=== PATIENT | female | born 1950 | race Caucasian/White ===

== ENCOUNTER → 2017-04-27 | Outpatient (REF) | LOC: WSOH 10:30 | DX: Z02.4 Encounter for examination for driving license (principal) ==

== ENCOUNTER 2018-07-05 13:30 | Outpatient (RCR) | payer MEDICARE, BC | END 2018-08-13 | disposition home or self-care (01) | LOC: WSPT | DX: M48.07 Spinal stenosis, lumbosacral region (principal); G95.19 Other vascular myelopathies; R29.3 Abnormal posture; Z79.84 Long term (current) use of oral hypoglycemic drugs; Z79.899 Other long term (current) drug therapy | CPT/HCPCS: G8978-GP; G8979-GP ==

== ENCOUNTER → 2018-09-25 | Outpatient (REF) | LOC: ZLAB.WCH 16:06 | DX: Z01.89 Encounter for other specified special examinations (principal) ==

== ENCOUNTER → 2018-09-30 | Emergency (ER) | payer MEDICARE, BC ==
[~2018-09-30] VITALS: Ht 157.5 cm; Wt 89.1 kg
[~2018-09-30] MED LIST: BYSTOLIC10 MG PO; CALCIUM 600-D 61 TAB PO; FLEXERIL 1010 MG/TAB PO; FOSAMAX 70MG TA70 MG PO; IBU400 MG PO; JANUMXR100-1000 PO; LIPITOR20 MG PO; MEGA MULTIVITAM1 TAB PO; NAPROSYN500 MG PO; NATURE'S BLEND500 M1 PO; NORVASC 10MG10 MG PO; VICTOZA6 MG/ML SQ; VITAMIN C500 MG PO; ZESTRIL 5MG5 MG PO
[2018-09-30 13:48] VITALS: BP 133/78; PULSE 83
== END ==
LOC: COL.ER 10:24
DX: M54.42 Lumbago with sciatica, left side (principal); M51.36 Other intervertebral disc degeneration, lumbar region; I10 Essential (primary) hypertension; E11.9 Type 2 diabetes mellitus without complications; M19.90 Unspecified osteoarthritis, unspecified site; Z79.84 Long term (current) use of oral hypoglycemic drugs
CPT/HCPCS: J1170

== ENCOUNTER 2018-10-09 12:45 | Outpatient (RCR) | payer MEDICARE, BC | END 2018-11-26 | disposition home or self-care (01) | LOC: WSC | DX: M48.02 Spinal stenosis, cervical region (principal) | CPT/HCPCS: G8984-GP; G8985-GP ==

== ENCOUNTER → 2018-11-20 | Outpatient (CLI) | payer MEDICARE, BC | LOC: MHCPAIN 14:55 | DX: G89.29 Other chronic pain (principal); M47.817 Spondylosis without myelopathy or radiculopathy, lumbosacral region; M54.16 Radiculopathy, lumbar region; M53.3 Sacrococcygeal disorders, not elsewhere classified; M96.1 Postlaminectomy syndrome, not elsewhere classified | CPT/HCPCS: G0463 ==

== ENCOUNTER → 2018-12-03 | Outpatient (CLI) | payer MEDICARE, BC | LOC: MHCPAIN 12:08 | DX: M47.817 Spondylosis without myelopathy or radiculopathy, lumbosacral region (principal); M54.16 Radiculopathy, lumbar region | CPT/HCPCS: J1100; Q9967 ==

== ENCOUNTER → 2018-12-18 | Outpatient (CLI) | payer MEDICARE, BC | LOC: MHCPAIN 09:12 | DX: G89.29 Other chronic pain (principal); M47.817 Spondylosis without myelopathy or radiculopathy, lumbosacral region; M54.16 Radiculopathy, lumbar region; M53.3 Sacrococcygeal disorders, not elsewhere classified; M96.1 Postlaminectomy syndrome, not elsewhere classified | CPT/HCPCS: G0463 ==

== ENCOUNTER → 2018-12-27 | Outpatient (CLI) | payer MEDICARE, BC | LOC: MHCPAIN 12:59 | DX: M47.817 Spondylosis without myelopathy or radiculopathy, lumbosacral region (principal); M54.16 Radiculopathy, lumbar region | CPT/HCPCS: J1100; Q9967 ==

== ENCOUNTER → 2019-02-06 | Outpatient (CLI) | payer MEDICARE, BC | LOC: MHCPAIN 13:20 | DX: G89.29 Other chronic pain (principal); M47.817 Spondylosis without myelopathy or radiculopathy, lumbosacral region; M54.16 Radiculopathy, lumbar region; M53.3 Sacrococcygeal disorders, not elsewhere classified; M48.061 Spinal stenosis, lumbar region without neurogenic claudication | CPT/HCPCS: G0463 ==

== ENCOUNTER → 2019-02-11 | Outpatient (CLI) | payer MEDICARE, BC | LOC: MHCPAIN 10:51 | DX: M47.817 Spondylosis without myelopathy or radiculopathy, lumbosacral region (principal); M54.16 Radiculopathy, lumbar region | CPT/HCPCS: J1100; Q9967 ==

== ENCOUNTER → 2019-03-12 | Outpatient (CLI) | payer MEDICARE, BC | LOC: MHCPAIN 13:52 | DX: G89.29 Other chronic pain (principal); M47.817 Spondylosis without myelopathy or radiculopathy, lumbosacral region; M54.16 Radiculopathy, lumbar region; M53.3 Sacrococcygeal disorders, not elsewhere classified; M96.1 Postlaminectomy syndrome, not elsewhere classified; M41.9 Scoliosis, unspecified | CPT/HCPCS: G0463 ==

== ENCOUNTER → 2019-09-16 | Outpatient (CLI) | payer MEDICARE, BC | LOC: MHCPAIN 09:58 | DX: M47.817 Spondylosis without myelopathy or radiculopathy, lumbosacral region (principal); M54.16 Radiculopathy, lumbar region | CPT/HCPCS: G0463 ==

== ENCOUNTER → 2019-11-20 | Outpatient (CLI) | payer MEDICARE, BC | LOC: MHCPAIN 14:10 | DX: M47.817 Spondylosis without myelopathy or radiculopathy, lumbosacral region (principal); G89.29 Other chronic pain; M96.1 Postlaminectomy syndrome, not elsewhere classified | CPT/HCPCS: G0463 ==

== ENCOUNTER → 2020-07-28 | Outpatient (CLI) | payer MEDICARE, BC ==
[~2020-07-28] VITALS: Ht 157.5 cm; Wt 92.3 kg
[~2020-07-28] MED LIST changes: +CALCIUM 600/VIT1 CA1 PO; +COREG 6.256.25 MG/TA PO; +GLUCOPHAGE500 MG/TAB PO
[2020-07-28 12:24] VITALS: BP 149/83; PULSE 90
[2020-07-28 13:15] VITALS: BP 165/88; PULSE 90
== END ==
LOC: COL.RAD 11:45
DX: E04.2 Nontoxic multinodular goiter (principal)

== ENCOUNTER → 2022-07-11 | Outpatient (RCR) | payer MEDICARE, BC | END | disposition home or self-care (01) | LOC: WSC → WSPT 06-13 09:00 → WSC 06-30 11:15 | DX: M48.062 Spinal stenosis, lumbar region with neurogenic claudication (principal); G62.9 Polyneuropathy, unspecified; M48.10 Ankylosing hyperostosis [Forestier], site unspecified; Q76.49 Other congenital malformations of spine, not associated with scoliosis ==